=== PATIENT | female | born 1985 | race Caucasian/White ===

== ENCOUNTER 2019-12-29 17:17 | Observation (INO) | payer OTHER ==
[~2019-12-29] VITALS: Ht 170.2 cm; Wt 59.0 kg
[~2019-12-29 17:17] MED LIST: CEPH500 PO; CYCL10 PO; Cleocin HCl300 MG PO; DOXY100 PO; FAMO40 PO; HYDACE5 PO; HYDMOR4 PO; MELA3; METR500 PO; NAPR500 PO; OXYACE5T PO; PRED10 PO; PROCODE120 PO; PSEU120ER PO; SULTRIDS PO
[2019-12-29 18:00] LABS: BASOPHILS ABSOLUTE AUTO 0.04 K/mm3 (0.00-0.23); BASOPHILS PERCENT AUTO 0 % (0-2); EOSINOPHILS PERCENT AUTO 6 % (0-6); Hematocrit 39.3 % (33.0-51.0); Hemoglobin 13.2 g/dL (11.5-16.0); IMMATURE GRAN ABSOLUTE AUTO 0.03 K/mm3 (0.00-0.10); IMMATURE GRAN PERCENT AUTO 0 % (0-1); LYMPHOCYTES ABSOLUTE AUTO 1.51 K/mm3 (0.84-5.20); LYMPHOCYTES PERCENT AUTO 15 % (21-46); MONOCYTES ABSOLUTE AUTO 0.66 K/mm3 (0.16-1.47); MONOCYTES PERCENT AUTO 7 % (4-13); Mean Corpuscular HGB 28.7 pg (26.0-34.0); Mean Corpuscular HGB Conc 33.6 g/dL (31.5-36.5); Mean Corpuscular Volume 85 fL (80-100); Mean Platelet Volume 9.6 fL (9.1-12.4); NEUTROPHILS ABSOLUTE AUTO 7.26 K/mm3 (1.96-9.15); NEUTROPHILS PERCENT AUTO 72 % (41-73); Platelet Count 475 K/mm3 (150-400); RDW Coefficient Variation 13.7 % (11.7-14.2); RDW Standard Deviation 42.7 fL (35.1-46.3)
[2019-12-29 18:22] LABS: Alanine Aminotransfer (ALT/SGP 25 U/L (12-78); Alk Phos 87 U/L (50-136); Anion Gap 6 mmol/L (6-16); Aspartate Aminotrans (AST/SGOT 22 U/L (12-37); Bilirubin, Total 0.8 mg/dL (0.1-1.0); Blood Urea Nitrogen 3 mg/dL (8-24); Bun/Creatinine Ratio 3.3 (12.0-20.0); CO2, Blood 23 mmol/L (21-32); Calcium, Blood 9.3 mg/dL (8.5-10.1); Chloride, Blood 109 mmol/L (98-108); Creatinine, Blood 0.92 mg/dL (0.40-1.00); Ethanol (Alcohol), Blood, Med <3 mg/dL; Globulin, Blood 3.9 g/dL (2.2-4.0); Glomerular Filtration Rate >60 (60-); Glucose, Blood 90 mg/dL (70-99); Potassium, Blood 2.6 mmol/L (3.5-5.5); Salicylate 2.1 mg/dL (2.8-20.0); Sodium, Blood 138 mmol/L (136-145); Total Protein, Blood 7.9 g/dL (6.4-8.2)
[2019-12-29 18:25] LABS: Acetaminophen, Random <2.0 ug/mL (10.0-30.0)
[2019-12-29 18:57] LABS: Lithium 1.55 mmol/L (0.60-1.20)
[2019-12-29 20:03] LABS: Source, Urine Clean Catch
[2019-12-29 20:08] LABS: Appearance, Urine Clear (Clear); Bilirubin, Urine Neg (Neg); Blood, Urine Neg (Neg); Color, Urine Yellow (P-Yellow); Glucose Qualitative, Urine Neg (Neg); Ketones, Urine Neg (Neg); Leukocyte Esterase, Urine Neg (Neg); Nitrite, Urine Neg (Neg); Protein, Urine Neg (Neg); Urobilinogen, Urine NORM (Normal)
[2019-12-29 20:30] LABS: U Amphetamine Screen DETECTED; U Barbituate Screen Not Detected; U Benzodiazapine Screen Not Detected; U Buprenorphine Screen Not Detected; U Cannabinoids Screen Not Detected; U Cocaine Screen Not Detected; U Methadone Screen Not Detected; U Methamphetamine Screen DETECTED; U Opiates Screen Not Detected; U Oxycodone Screen Not Detected; U Phencyclidine Screen Not Detected; U Propoxyphene Screen Not Detected
[2020-01-29] MEDS ORDERED: LITH300C PO ×2 (02:01)
[2020-01-29] MEDS ORDERED: ZOLP5 PO (02:02)
== END 2019-12-30 15:44 | disposition home or self-care (01) ==
LOC: ER 17:17 → EOR 17:18 → ER 21:48 → EOR 21:48
PROVIDERS: Physician Assistant; ADMIT Emergency Medicine
DX: F32.9 Major depressive disorder, single episode, unspecified (principal); F17.200 Nicotine dependence, unspecified, uncomplicated; Z11.59 Encounter for screening for other viral diseases
CPT/HCPCS: 80053; 80178; 81003; 81025; 85025; 99285; G0378; G0480; Q3014; U0002

== ENCOUNTER 2020-06-15 18:18 | Emergency (ER) | payer OTHER ==
[~2020-06-15] VITALS: Ht 167.6 cm; Wt 110.2 kg
[~2020-06-15 18:18] MED LIST changes: +LITH300C PO; +ZOLP5 PO
[2020-06-15] MEDS ORDERED: Vibramycin100 MG PO (20:50)
== END 2020-06-15 21:00 | disposition home or self-care (01) ==
LOC: ER 18:18
DX: S60.447A External constriction of left little finger, initial encounter (principal); F20.9 Schizophrenia, unspecified; F31.9 Bipolar disorder, unspecified; F41.9 Anxiety disorder, unspecified; F17.210 Nicotine dependence, cigarettes, uncomplicated; Z79.899 Other long term (current) drug therapy; W49.09XA Other specified item causing external constriction, initial encounter
CPT/HCPCS: 99283

== ENCOUNTER 2022-05-17 12:06 | Emergency (ER) | payer OTHER ==
[~2022-05-17] VITALS: Ht 170.2 cm; Wt 68.0 kg
[~2022-05-17 12:06] MED LIST changes: +Vibramycin100 MG PO
[2022-05-17] MEDS ORDERED: AMOCLA875 PO (14:45)
== END 2022-05-17 14:55 | disposition home or self-care (01) ==
LOC: ER 12:06
DX: L03.011 Cellulitis of right finger (principal)
CPT/HCPCS: 10060; 99283-25